=== PATIENT | female | born 1960 | race Asian ===

== ENCOUNTER 2016-09-20 22:02 | Emergency (ER) | payer SELFPAY ==
[~2016-09-20] VITALS: Ht 152.4 cm; Wt 61.4 kg
[2016-09-20] MEDS ORDERED: METO50 PO (23:10)
[2016-09-20] MEDS ORDERED: AmLODIPine BESYLATE 5 MG TABLET PO ONE (23:15)
[2016-09-20 23:28] LABS: BASOPHILS % (AUTO) 1.2 % (0.0-2.0); EOSINOPHILS % (AUTO) 2.9 % (1.0-6.0); HEMATOCRIT 43.4 % (36-46); HEMOGLOBIN 14.8 g/dL (12.0-16.0); LYMPHOCYTES # (AUTO) 3.6 K/uL (1.0-4.8); MEAN CORPUSCULAR HEMOGLOBIN 27.7 pg (26.0-34.0); MEAN CORPUSCULAR VOLUME 81 fL (80-100); MONOCYTES # (AUTO) 0.7 K/uL (0.1-1.0); MONOCYTES % (AUTO) 6.7 % (2.0-9.0); NEUTROPHILS # (AUTO) 5.3 K/uL (1.8-7.7); NEUTROPHILS % (AUTO) 53.2 % (40.0-70.0); PLATELET COUNT (AUTO) 223 K/uL (150-450); RED BLOOD CELL COUNT(AUTO) 5.33 MIL/uL (4.00-5.20); RED CELL DISTRIBUTION WIDTH 13.4 % (11.5-14.5); WHITE BLOOD COUNT (AUTO) 9.9 K/uL (4.5-11.0)
[2016-09-20 23:39] LABS: CALCIUM, TOTAL 9.6 mg/dL (8.8-10.5); CREATININE 1.25 mg/dL (0.60-1.30); POTASSIUM 3.4 mmol/L (3.5-5.1)
[2016-09-20 23:45] LABS: ALBUMIN 4.2 g/dL (3.4-5.0); BILIRUBIN,TOTAL 0.4 mg/dL (0.1-1.0); TOTAL PROTEIN, SERUM 9.1 g/dL (6.4-8.2)
[2016-09-21 01:18] VITALS: BP 154/81
== END 2016-09-21 01:23 | disposition home or self-care (01) ==
LOC: EMS 22:05
DX: I10 Essential (primary) hypertension (principal)
CPT/HCPCS: 93005; 99285